=== PATIENT | male | born 1980 | race Caucasian/White ===

== ENCOUNTER 2018-10-28 17:27 | Emergency (ER) | payer SELFPAY ==
[~2018-10-28] VITALS: Ht 182.9 cm; Wt 93.2 kg
[2018-10-28 17:34] VITALS: TEMP 96.9
[2018-10-28 18:05] LABS: BASO # 0.1 (0.0-0.2); BASO % 0.6 % (0.0-2.0); EOS # 0.1 (0.0-0.7); EOS % 1.5 % (0-4.0); GRAN # 5.9 (1.4-6.5); GRAN % 72.1 % (42.2-75.2); HEMATOCRIT 42.8 % (42.0-52.0); HEMOGLOBIN 14.3 g/dl (13.5-18.0); LYMPH # 1.4 (1.2-3.4); LYMPH % 16.7 % (20.0-51.0); MEAN CELL VOLUME 92 fl (80.0-100.0); MEAN CORPUSCULAR HEMOGLOBIN 31 pg (27.0-31.0); MEAN CORPUSCULAR HGB CONC 33 g/dl (33.0-37.0); MEAN PLATELET VOLUME 8.9 fl (7.4-10.4); MONO # 0.7 (0.1-0.6); MONO % 8.7 % (1.7-9.3); PLATELET COUNT 375 K/mm3 (130-400); RED BLOOD COUNT 4.68 M/mm3 (4.20-5.60)
[2018-10-28 18:19] LABS: ALANINE AMINOTRANSFERASE 40 U/L (21-72); ALBUMIN 4.5 gm/dL (3.5-5.0); ALCOHOL(ethanol),MEDICAL < 10 mg/dL; ALKALINE PHOSPHATASE 99 U/L (50-136); ANION GAP 16 mmol/L (7-16); AST,SGOT 48 U/L (15-37); BILIRUBIN,TOTAL 0.6 mg/dL (0.0-1.0); BLOOD UREA NITROGEN 13 mg/dL (9-20); CALCIUM 9.8 mg/dL (8.4-10.2); CARBON DIOXIDE 21 mmol/L (22-30); CHLORIDE 103 mmol/L (98-107); CREATININE, serum 1.12 (0.66-1.25); GLUCOSE 83 mg/dL (74-106); POTASSIUM 3.3 mmol/L (3.4-5.0); SODIUM 141 mmol/L (137-145); TOTAL PROTEIN 8.1 gm/dL (6.4-8.2)
[2018-10-28] MEDS ORDERED: ATIVAN 1MG T1 MG/TAB PO (19:55)
[2018-10-28 19:58] VITALS: BP 141/98; PULSE 90
== END 2018-10-28 20:05 | disposition home or self-care (01) ==
LOC: COL.ER 17:27
PROVIDERS: Emergency Medicine
DX: F41.9 Anxiety disorder, unspecified (principal); F48.2 Pseudobulbar affect; F17.210 Nicotine dependence, cigarettes, uncomplicated

== ENCOUNTER 2018-11-19 13:02 | Emergency (ER) | payer SELFPAY ==
[~2018-11-19] VITALS: Ht 182.9 cm; Wt 86.4 kg
[~2018-11-19 13:02] MED LIST: ATIVAN 1MG T1 MG/TAB PO
[2018-11-19 13:07] VITALS: BP 128/87; TEMP 96.8
[2018-11-19] MEDS ORDERED: ATIVAN 1MG T1 MG/TAB PO (13:19)
[2018-11-19] MEDS ORDERED: NEURONTIN400 MG/CAP PO (13:25)
[2018-11-19 13:40] VITALS: PULSE 97
--- NOTE | 2018-11-19 14:04 | NUR ---
The patient requested assistance with discharge medications. SARAH provided a voucher for the pt to [facility] for his rx. SARAH faxed a copy to [facility] and provided a copy for the case managment director. There are no additional needs at this time.
== END 2018-11-19 13:41 | disposition home or self-care (01) ==
LOC: COL.ER 13:02
DX: F41.9 Anxiety disorder, unspecified (principal); F17.210 Nicotine dependence, cigarettes, uncomplicated; F12.90 Cannabis use, unspecified, uncomplicated